=== PATIENT | female | born 1965 | race Two or more races ===

== ENCOUNTER 2019-03-19 20:39 | Emergency (ER) | payer SELFPAY ==
[~2019-03-19] VITALS: Ht 154.9 cm; Wt 77.1 kg
[2019-03-19 20:55] VITALS: BP 113/74
--- NOTE | 2019-03-19 20:55 | NUR ---
ED Nurse Note: Patient walked in to ED from home c/o left leg pain since sunday. Denies trauma/ injury or fall. No stated medical history. Afebrile. No SOB. VSS. Family member at bedside.
--- NOTE | 2019-03-19 21:06 | NUR ---
ED Nurse Note: ERMD at bedside.
--- NOTE | 2019-03-19 21:12 | Emergency Room Report ---
History of Present Illness General Chief Complaint: Pain Source: Patient, Family Member Present Illness HPI The patient presents with left hip pain that began Sunday. She was standing when she noticed it initially. She denies any falls or trauma. She is never had this pain before. She denies arthritis. No fevers or chills. The pain is is significant and radiates somewhat down into her thigh. She has no back pain. There is no diarrhea. She occasionally has constipation but denies this at this time. She denies dysuria. She took Naprosyn couple of hours ago and states that it has not helped at all. Allergies: Coded Allergies: No Known Allergies (Unverified , 03/19/19) Patient History Past Medical History: see triage record Social History Narrative With daughter Last Menstrual Period: NA Now: No : 3 Para: 3 Reviewed Nursing Documentation: PMH: Agreed; PSxH: Agreed Nursing Documentation-PMH Past Medical History: No Stated History Hx Cardiac Problems: No Hx Hypertension: No Hx Pacemaker: No Hx Asthma: No Hx COPD: No Hx Diabetes: No Hx Cancer: No Hx Gastrointestinal Problems: No Hx Dialysis: No History Of Psychiatric Problem: No Hx Neurological Problems: No Hx Cerebrovascular Accident: No Hx Seizures: No Physical Exam Vital Signs Date Time Temp Pulse Resp B/P (MAP) Pulse Ox O2 Delivery O2 Flow Rate FiO2 03/19/19 20:47 99.0 67 17 113/74 (87) 98 Room Air Eyes: bilateral eye other - Pterygium Medical Decision Making Diagnostic Impression: Primary Impression: Left hip pain ER Course Patient presents with nontraumatic left hip pain. Differential includes gout, arthritis, pseudogout, strain, sprain amongst others. Evaluation with labs and x-rays. The patient will be treated with a dose of Toradol, Zofran and morphine. X-ray without lesions. Labs significant for minimal elevated white count minimally elevated ESR and C-reactive protein. Patient denies fevers and chills for this whole process. 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 Patient improved with treatment here. Discussed treatment plan. Patient stable for outpatient observation and treatment Laboratory Tests Test 03/19/19 21:23 03/19/19 21:37 White Blood Count 11.4 K/UL (4.8-10.8) H Red Blood Count 4.26 M/UL (4.20-5.40) Hemoglobin 12.5 G/DL (12.0-16.0) Hematocrit 37.5 % (37.0-47.0) Mean Corpuscular Volume 88 FL (80-99) Mean Corpuscular Hemoglobin 29.2 PG (27.0-31.0) Mean Corpuscular Hemoglobin Concent 33.2 G/DL (32.0-36.0) Red Cell Distribution Width 11.5 % (11.6-14.8) L Platelet Count 326 K/UL (150-450) Mean Platelet Volume 5.3 FL (6.5-10.1) L Neutrophils (%) (Auto) 53.2 % (45.0-75.0) Lymphocytes (%) (Auto) 36.8 % (20.0-45.0) Monocytes (%) (Auto) 6.9 % (1.0-10.0) Eosinophils (%) (Auto) 2.4 % (0.0-3.0) Basophils (%) (Auto) 0.7 % (0.0-2.0) Erythrocyte Sedimentation Rate 18 MM/HR (0-30) Sodium Level 142 MMOL/L (136-145) Potassium Level 3.7 MMOL/L (3.5-5.1) Chloride Level 107 MMOL/L (98-107) Carbon Dioxide Level 29 MMOL/L (21-32) Anion Gap 6 mmol/L (5-15) Blood Urea Nitrogen 18 mg/dL (7-18) Creatinine 0.8 MG/DL (0.55-1.30) Estimate Glomerular Filtration Rate > 60 mL/min (>60) Glucose Level 99 MG/DL (74-106) Uric Acid 3.7 MG/DL (2.6-7.2) Calcium Level 8.9 MG/DL (8.5-10.1) Total Bilirubin 0.2 MG/DL (0.2-1.0) Aspartate Amino Transferase (AST) 18 U/L (15-37) Alanine Aminotransferase (ALT) 34 U/L (12-78) Alkaline Phosphatase 76 U/L (46-116) C-Reactive Protein, Quantitative 1.0 mg/dL (0.00-0.90) H Total Protein 7.9 G/DL (6.4-8.2) Albumin 3.9 G/DL (3.4-5.0) Globulin 4.0 g/dL Albumin/Globulin Ratio 1.0 (1.0-2.7) Urine Color Pale yellow Urine Appearance Clear Urine pH 7 (4.5-8.0) Urine Specific [place] 1.005 (1.005-1.035) Urine Protein Negative (NEGATIVE) Urine Glucose (UA) Negative (NEGATIVE) Urine Ketones Negative (NEGATIVE) Urine Blood Negative (NEGATIVE) Urine Nitrite Negative (NEGATIVE) Urine Bilirubin Negative (NEGATIVE) Urine Urobilinogen Normal MG/DL (0.0-1.0) Urine Leukocyte Esterase 1+ (NEGATIVE) H Urine RBC 0-2 /HPF (0 - 2) Urine WBC 0-2 /HPF (0 - 2) Urine Squamous Epithelial Cells Few /LPF (NONE/OCC) Urine Bacteria Few /HPF (NONE) Other X-Ray Diagnostic Results Other X-Ray Diagnostic Results : X-Ray ordered: Pelvis and left hip # of Views/Limited Vs Complete: 2 View Indication: Pain Last Vital Signs Date Time Temp Pulse Resp B/P (MAP) Pulse Ox O2 Delivery O2 Flow Rate FiO2 03/19/19 23:30 98.5 68 20 118/69 96 Room Air Status: improved Disposition: HOME, SELF-CARE Condition: Improved Scripts Acetaminophen (Tylenol) 325 Mg Tablet 650 MG ORAL Q6H PRN for Prn Pain/Headache/Temp > 101, #20 TAB 0 Refills Prov: Saleem Mcgill MD 03/19/19 Ibuprofen* (MOTRIN*) 600 Mg Tablet 600 MG ORAL Q6H PRN for For Pain, #20 TAB 0 Refills Prov: Saleem Mcgill MD 03/19/19 Tramadol Hcl* (ULTRAM*) 50 Mg Tablet 50 MG ORAL Q6H PRN for For Pain, #8 TAB 0 Refills Prov: Saleem Mcgill MD 03/19/19 Referrals: NOT CHOSEN IPA/,REFERRING (PCP) Saleem Mcgill MD Mar 19, 2019 21:12
[2019-03-19] MEDS ORDERED: Ketorolac 30mg Inj IV ONE (21:15)
[2019-03-19] MEDS ORDERED: Morphine Sulfate 2mg/ml Inj(IV/IM USE ONLY) IVP ONE (21:15)
--- NOTE | 2019-03-19 21:21 | NUR ---
ED Nurse Note: Xray at bedside.
[2019-03-19 21:34] LABS: BASOPHILS % (AUTO) 0.7 % (0.0-2.0); EOSINOPHILS % (AUTO) 2.4 % (0.0-3.0); HEMATOCRIT 37.5 % (37.0-47.0); HEMOGLOBIN 12.5 G/DL (12.0-16.0); LYMPHOCYTES % (AUTO) 36.8 % (20.0-45.0); MEAN CORPUSCULAR VOLUME 88 FL (80-99); MONOCYTES % (AUTO) 6.9 % (1.0-10.0); NEUTROPHILS % (AUTO) 53.2 % (45.0-75.0); PLATELET COUNT 326 K/UL (150-450); RED BLOOD COUNT 4.26 M/UL (4.20-5.40); RED CELL DISTRIBUTION WIDTH 11.5 % (11.6-14.8); WHITE BLOOD COUNT 11.4 K/UL (4.8-10.8)
[2019-03-19 21:49] LABS: APPEARANCE,URINE CLEAR; BILIRUBIN, URINE NEGATIVE (NEGATIVE); COLOR,URINE PALE YELLOW; GLUCOSE, URINE (UA) NEGATIVE (NEGATIVE); KETONES,URINE NEGATIVE (NEGATIVE); LEUKOCYTE ESTERASE ,URINE 1+ (NEGATIVE); NITRITE,URINE NEGATIVE (NEGATIVE); PH,URINE 7 (4.5-8.0); PROTEIN,URINE NEGATIVE (NEGATIVE); UROBILINOGEN,URINE NORMAL MG/DL (0.0-1.0)
[2019-03-19 21:55] LABS: ANION GAP 6 mmol/L (5-15); BLOOD UREA NITROGEN 18 mg/dL (7-18); CALCIUM 8.9 MG/DL (8.5-10.1); CARBON DIOXIDE 29 MMOL/L (21-32); CHLORIDE 107 MMOL/L (98-107); CREATININE 0.8 MG/DL (0.55-1.30); POTASSIUM 3.7 MMOL/L (3.5-5.1); SODIUM 142 MMOL/L (136-145)
[2019-03-19 22:00] LABS: ALANINE AMINOTRANSFERASE 34 U/L (12-78); ALBUMIN 3.9 G/DL (3.4-5.0); ALKALINE PHOSPHATASE 76 U/L (46-116); ASPARTATE AMINO TRANSFERASE 18 U/L (15-37); BILIRUBIN,TOTAL 0.2 MG/DL (0.2-1.0)
[2019-03-19 23:06] VITALS: BP 121/70
[2019-03-19] MEDS ORDERED: TRAMADOL HCL50 MG ORAL (23:14)
[2019-03-19] MEDS ORDERED: IBUPROFEN600 MG ORAL (23:14)
[2019-03-19] MEDS ORDERED: TYLENOL325 MG ORAL (23:14)
[2019-03-19 23:30] VITALS: BP 118/69
--- NOTE | 2019-03-19 23:30 | NUR ---
ED Nurse Note: Pt cleared by ERMD for discharge. DC instructions/prescription was given and explained to pt and verbalized understanding of teachings. All medical deviecs such as ID band IV line removed. Pt is AAO x4, ambulatory and left with all personal belongings. Accomopanied by family member.
--- NOTE | 2019-03-20 12:19 | Diagnostic Imaging Report ---
Indication: Hip pain Technique: XRAY Hip Routine 2v+ w/Pelv-L Comparison: None Findings: Bone mineralization within normal limits. No radiographically appreciable acute fractures identified. Hip joints are maintained, without evidence of dislocation. Symphysis pubis and sacroiliac joints are maintained. Question minimal degenerative changes in the lower lumbar spine which are partially visualized. There are enthesopathic changes adjacent to the greater trochanter of the left femur. There are pelvic phleboliths. Mild retained colonic stool. Impression: No radiographically appreciable acute fracture. Enthesopathic or chronic posttraumatic changes adjacent to the left greater trochanter.
== END 2019-03-19 23:30 | disposition home or self-care (01) ==
LOC: EMR 21:05
DX: M25.552 Pain in left hip (principal)
CPT/HCPCS: 36415; 73502; 80053; 81001; 84550; 85025; 85651; 86140; 96374; 96375; 99284; J1885; J2270; J2405